=== PATIENT | male | born 1970 | race Caucasian/White ===

== ENCOUNTER 2021-09-21 09:10 | Day surgery (SDC) | payer BC ==
[~2021-09-21 09:10] MED LIST: Lactated Ringers 1,000 ML IV SCH; Lidocaine 1%/Sod Bicarbonate in NS 8.4% 1 ML Syringe IDERM PRN; Sodium Chloride 0.9% 10 ML Syringe FLUSH PRN
[2021-09-21] MEDS ORDERED: Propofol 200 MG/20 ML SDV ONE ×2 (09:58→10:20)
[2021-09-21] MEDS ORDERED: Lidocaine 1% 4 ML ONE (09:58)
[2021-09-21] MEDS ORDERED: fentaNYL 100 MCG/2 ML SDV ONE (09:58)
[2021-09-21] MEDS ORDERED: Midazolam 1 MG/ML 2 ML SDV ONE (09:58)
--- NOTE | 2021-09-21 10:17 | PCM.PREANE ---
Preanesthetic Assessment - Procedure Proposed Procedure: Colonoscopy - Anesthesia/Transfusion/Family Hx Anesthesia History: Prior Anesthesia Without Reaction Family History of Anesthesia Reaction: No Transfusion History: No Prior Transfusion(s) Intubation History: Unknown (Patient stated that when he has had surgery, he has never been told he was difficult to be intubated) - Review of Systems General: No Symptoms Pulmonary: No Symptoms Cardiovascular: No Symptoms Gastrointestinal: No Symptoms Neurological: No Symptoms Other: Reports: None - Physical Assessment NPO Status Date: 09/21/21 NPO Status Time: 08:00 (Patient stated he had 8 ounces of water from [id number], discussed extensively regarding risk of aspiration to ensure 0800 was the last time he had water, patient confirmed) Vital Signs: BP 120/79 HR 86 RR 16 97.9 96% RA Height: 1.7 m Weight: 84 kg ASA Class: 2 Mental Status: Alert & Oriented x3 Airway Class: Mallampati = 2 Dentition: Reports: [place](s), [place] Thyro-Mental Finger Breadths: 3 Mouth Opening Finger Breadths: 3 ROM/Head Extension: Full Lungs: Clear to Auscultation, Normal Respiratory Effort Cardiovascular: Regular Rate, Regular Rhythm, No Murmurs - Imaging/EKG Impressions: Discussed with Dr. Stockton if he would like an EKG done prior to procedure as it was checked in his pre-op checklist, Dr. Stockton stated that it was not indicated. Also discussed this with patient and as well. Patient can complete greater than 4 METs of activity without SOB or chest pain. Also notified Dr. Stockton of patient drinking 8 ounces of water this morning between [id number], Dr. Sotckton is aware and okay to proceed with procedure since it has been greater than 2 hours since he last drank water. Discussed with MAXWELL Stearns as well since it will be his case. MAXWELL Stearns was okay to proceed and he said since it has been greater than 2 hours (since clear liquids/water) no need or Reglan, Pepcid, or Bicitra. Discussed plan with patient and and stated they would like to proceed. - Allergies Allergies/Adverse Reactions: Allergies Allergy/AdvReac Type Severity Reaction Status Date / Time No Known Allergies Allergy Verified 09/20/21 16:06 - Blood Blood Available: No - Acknowledgements Anesthesia Type Planned: MAC Pt an Appropriate Candidate for the Planned Anesthesia: Yes Alternatives and Risks of Anesthesia Discussed w Pt/Guardian: Yes Pt/Guardian Understands and Agrees with Anesthesia Plan: Yes PreAnesthesia Questionnaire HEENT History: Reports: Allergic Rhinitis, Impaired Vision Cardiovascular History: Reports: Hypertension Respiratory History: Reports: Other (See Below) Other Respiratory History: Former smoker and chewer Gastrointestinal History: Reports: GERD (Occasionally dependent on food consumed, patient denies heart burn in the last week, patient stated it is well controlled.) Genitourinary History: Reports: None 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 Patient stated he has not had a migraine for 12 years and have been well controlled.) Psychiatric History: Reports: None Endocrine/Metabolic History: Reports: None Hematologic History: Reports: None Immunologic History: Reports: None Oncologic (Cancer) History: Reports: None Dermatologic History: Reports: None - Infectious Disease History Infectious Disease History: Reports: None - Past Surgical History Head Surgeries/Procedures: Reports: None HEENT Surgical History: Reports: None Cardiovascular Surgical History: Reports: None Respiratory Surgical History: Reports: None GI Surgical History: Reports: None Female Surgical History: Reports: None Male Surgical History: Reports: None Neurological Surgical History: Reports: Lumbar Spine Musculoskeletal Surgical History: Reports: None Oncologic Surgical History: Reports: None Dermatological Surgical History: Reports: None - SUBSTANCE USE Tobacco Use Status *Q: Former Tobacco User Recreational Drug Use History: No - HOME MEDS Home Medications: Home Meds lisinopriL [Lisinopril] 10 mg PO DAILY 09/20/21 [History] - CURRENT (IN HOUSE) MEDS Current Meds: Current Medications Lactated Ringer's (Ringers, Lactated) 1,000 mls @ 125 mls/hr IV ASDIRECTED JAME Stop: 09/21/21 23:00 Lidocaine/Sodium Bicarbonate (Lidocaine 1%/Sod Bicarbonate In Ns 8.4% 1 Ml Syringe) 0.25 ml IDERM ONETIME PRN PRN Reason: Prior to IV Start Stop: 09/21/21 18:00 Sodium Chloride (Sodium Chloride 0.9% 10 Ml Syringe) 10 ml FLUSH ASDIRECTED PRN PRN Reason: Keep Vein Open Stop: 09/21/21 18:00 Discontinued Medications Fentanyl (Fentanyl 100 Mcg/2 Ml Sdv) Confirm Administered Dose 100 mcg .ROUTE .STK-MED ONE Stop: 09/21/21 09:59 Lidocaine HCl (Xylocaine-Mpf 1%) Confirm Administered Dose 4 mls @ as directed .ROUTE .STK-MED ONE Stop: 09/21/21 09:59 Midazolam HCl (Midazolam 1 Mg/Ml 2 Ml Sdv) Confirm Administered Dose 2 mg .ROUTE .STK-MED ONE Stop: 09/21/21 09:59 Propofol (Propofol 200 Mg/20 Ml Sdv) Confirm Administered Dose 200 mg .ROUTE .STK-MED ONE Stop: 09/21/21 09:59
--- NOTE | 2021-09-21 11:34 | PCM48HPAN ---
Post Anesthesia Note - EVALUATION WITHIN 48HRS OF ANESTHETIC Vital Signs in Normal Range: Yes Patient Participated in Evaluation: Yes Respiratory Function Stable: Yes Airway Patent: Yes Cardiovascular Function Stable: Yes Hydration Status Stable: Yes Pain Control Satisfactory: Yes Nausea and Vomiting Control Satisfactory: Yes Mental Status Recovered: Yes
--- NOTE | 2021-09-21 11:49 | PCM.PRNOTE ---
- Free Text/Narrative Note: Date: 09/21/2021 Procedure: screening colonoscopy, initial Endoscopist: Adriano Stockton MD Findings: fair prep. Cecum reached. Sessile polyp in ascending colon, pedunculated polyp in proximal rectum. Diverticulosis. Detailed Report: The patient was taken to the endoscopy suite and placed in left lateral decubitus position. Timeout was performed and monitored anesthesia care was initiated. The anus appeared normal and digital rectal exam was unremarkable. The colonoscope was inserted and advanced to the cecum with ease. The appendiceal orifice and ileocecal junction were visualized. Prep was fair. The scope was slowly withdrawn and mucosal surfaces carefully inspected. Within the mid ascending colon a 1 cm sessile polyp was identified. This was removed piecemeal with jumbo forceps and remaining tissue was fulgurated. The only other polyp that was identified was an inflammatory appearing pedunculated polyp in the proximal rectum. This was removed in its entirety using hot snare polypectomy technique and the specimen was successfully retrieved. There was moderate diverticular disease of the sigmoid colon. On retroflexion in the rectum, no pathology was noted. Air was suctioned from the distal colon and rectum prior to withdrawal of the scope. The patient tolerated the procedure well.
== END 2021-09-21 12:34 | disposition home or self-care (01) ==
LOC: JD.SDS 09:10
PROVIDERS: ATTEND Surgery
DX: Z12.11 Encounter for screening for malignant neoplasm of colon (principal); D12.2 Benign neoplasm of ascending colon; K62.1 Rectal polyp; K57.30 Diverticulosis of large intestine without perforation or abscess without bleeding; I10 Essential (primary) hypertension; J30.9 Allergic rhinitis, unspecified; K21.9 Gastro-esophageal reflux disease without esophagitis; Z98.890 Other specified postprocedural states; Z87.891 Personal history of nicotine dependence
CPT/HCPCS: 45380; 45385; J2250; J2370; J2704; J3010; J7120; 00812

== ENCOUNTER 2025-04-06 15:51 | Inpatient (IN) | payer BC ==
[2025-04-06] MEDS ORDERED: Sodium Chloride 0.9% 10 ML Syringe FLUSH PRN (16:01)
[2025-04-06 16:19] LABS: BASOPHILS ABSOLUTE AUTO 0.1 K/mm3 (0.0-0.2); BASOPHILS PERCENT AUTO 0.8 % (0.0-1.0); EOSINOPHILS PERCENT AUTO 0.1 % (0.0-6.0); HEMATOCRIT 50.8 % (42.0-52.0); HEMOGLOBIN 17.4 gm/dl (14.0-18.0); IMMATURE GRAN ABSOLUTE AUTO 0.17 K/mm3 (0.00-0.05); IMMATURE GRAN PERCENT AUTO 1.1 % (0.0-0.4); LYMPHOCYTES ABSOLUTE AUTO 2.5 K/mm3 (1.0-4.8); LYMPHOCYTES PERCENT AUTO 16.1 % (24.0-44.0); MEAN CORPUSCULAR HEMOGLOBIN 31.5 pg (28.0-32.0); MEAN CORPUSCULAR HGB CONC 34.3 g/dl (32.0-36.0); MEAN PLATELET VOLUME 8.8 fl (9.4-12.4); MONOCYTES PERCENT AUTO 6.5 % (0.0-8.0); NEUTROPHILS ABSOLUTE AUTO 11.9 K/mm3 (1.8-7.7); NEUTROPHILS PERCENT AUTO 75.4 % (41.0-71.0); PLATELET COUNT,PLT 199 K/mm3 (150-400); RED BLOOD CELL COUNT 5.52 M/mm3 (4.52-5.90); WHITE BLOOD CELL COUNT,WBC 15.72 K/mm3 (3.9-11.3)
[2025-04-06] MEDS: Sodium Chloride 0.9% 1,000 ML IV STA ×2 (16:23→18:29)
[2025-04-06] MEDS: HYDROmorphone 0.5 MG/0.5 ML Syringe IVPUSH ONE (16:23)
[2025-04-06] MEDS: Ondansetron 4 MG/2 ML SDV IVPUSH ONE (16:23)
[2025-04-06] MEDS: Sodium Chloride 0.9% 10 ML Syringe FLUSH ONE (16:28)
[2025-04-06] MEDS: Iopamidol 612 MG/ML 100 ML Bottle IVPUSH ONE (16:28)
[2025-04-06 16:42] LABS: A/G RATIO 1.2 (1-2); ALBUMIN 4.1 g/dl (3.4-5.0); BILIRUBIN TOTAL 1.3 mg/dL (0.2-1.0); BUN/CREATININE RATIO 8.6 (14-18); C-REACTIVE PROTEIN 3.99 mg/dL (<0.30); CALCIUM 9.6 mg/dL (8.5-10.1); CREATININE 1.4 mg/dL (0.7-1.3); PROTEIN TOTAL,TP 7.4 g/dl (6.4-8.2)
[2025-04-06 17:13] LABS: ANION GAP 26.1 (5-15); POTASSIUM,K 4.1 mEq/L (3.5-5.1)
[2025-04-06 18:00] LABS: APPEARANCE,URINE CLEAR (Clear); BILIRUBIN,URINE 1+ (Negative); COLOR,URINE YELLOW (Yellow); GLUCOSE,URINE NEGATIVE (Negative); KETONES,URINE 4+ (Negative); LEUKOCYTE ESTERASE,URINE NEGATIVE (Negative); NITRITE,URINE NEGATIVE (Negative); OCCULT BLOOD,URINE NEGATIVE (Negative); PH,URINE 5.5 (5.0-8.0); PROTEIN,URINE 1+ (Negative); UROBILINOGEN,URINE 0.2 (0.2-1.0)
[2025-04-06 18:14] LABS: LACTIC ACID 1.2 mmol/L (0.4-2.0)
[2025-04-06 18:23] LABS: EPITHELIAL CELLS,URINE 0-5 /hpf (0-5); RBC,URINE 0-5 /hpf (0-5); WBC,URINE 0-5 /hpf (0-5)
[2025-04-06 18:26] LABS: BACTERIA,URINE FEW /hpf (FEW); HYALINE CASTS,URINE 0-5 /lpf (0-5); MUCUS,URINE NOT SEEN /hpf (FEW)
[2025-04-06] MEDS ORDERED: Acetaminophen 325 MG Tab PO PRN (18:33)
[2025-04-06] MEDS ORDERED: Naloxone 0.4 MG/ML SDV IVPUSH PRN (18:34)
[2025-04-06] MEDS: HYDROmorphone 0.5 MG/0.5 ML Syringe IVPUSH PRN (19:20)
[2025-04-06] MEDS: cefTRIAXone 2 GM Vial IVPUSH SCH (20:07)
[2025-04-06] MEDS: metroNIDAZOLE/Normal Saline 500 MG in Premix Bag 1 BAG IV SCH (20:10)
[2025-04-06] MEDS: traMADol 50 MG Tab PO PRN (21:46)
[2025-04-07 05:47] LABS: BASOPHILS ABSOLUTE AUTO 0.1 K/mm3 (0.0-0.2); BASOPHILS PERCENT AUTO 0.9 % (0.0-1.0); EOSINOPHILS ABSOLUTE AUTO 0.2 K/mm3 (0.0-0.4); EOSINOPHILS PERCENT AUTO 2.1 % (0.0-6.0); HEMATOCRIT 41.6 % (42.0-52.0); HEMOGLOBIN 13.9 gm/dl (14.0-18.0); IMMATURE GRAN ABSOLUTE AUTO 0.12 K/mm3 (0.00-0.05); IMMATURE GRAN PERCENT AUTO 1.3 % (0.0-0.4); LYMPHOCYTES ABSOLUTE AUTO 2.3 K/mm3 (1.0-4.8); MEAN CORPUSCULAR HEMOGLOBIN 31.8 pg (28.0-32.0); MEAN CORPUSCULAR HGB CONC 33.4 g/dl (32.0-36.0); MEAN CORPUSCULAR VOLUME 95.2 fl (83.0-99.0); MONOCYTES ABSOLUTE AUTO 0.8 K/mm3 (0.0-0.8); MONOCYTES PERCENT AUTO 8.4 % (0.0-8.0); NEUTROPHILS ABSOLUTE AUTO 5.6 K/mm3 (1.8-7.7); NEUTROPHILS PERCENT AUTO 62.3 % (41.0-71.0); PLATELET COUNT,PLT 154 K/mm3 (150-400); RED BLOOD CELL COUNT 4.37 M/mm3 (4.52-5.90)
[2025-04-07 06:11] LABS: ALANINE AMINOTRANSFERASE,ALT 90 U/L (16-63); ALKALINE PHOSPHATASE 60 U/L (46-116); ANION GAP 16.8 (5-15); ASPARTATE AMNIOTRANSFERASE,AST 57 U/L (15-37); BILIRUBIN TOTAL 0.6 mg/dL (0.2-1.0); BLOOD UREA NITROGEN,BUN 8 mg/dL (7-18); BUN/CREATININE RATIO 6.7 (14-18); C-REACTIVE PROTEIN 2.37 mg/dL (<0.30); CALCIUM 8.6 mg/dL (8.5-10.1); CARBON DIOXIDE,CO2 23 mEq/L (21-32); CHLORIDE,CL 101 mEq/L (98-107); CREATININE 1.2 mg/dL (0.7-1.3); ESTIMATED GFR 71 mL/min (>60); GLUCOSE RANDOM 92 mg/dL (70-99); POTASSIUM,K 3.8 mEq/L (3.5-5.1); PROTEIN TOTAL,TP 5.9 g/dl (6.4-8.2); SODIUM,NA 137 mEq/L (136-145)
[2025-04-07] MEDS: Enoxaparin 40 MG/0.4 ML Syringe SUBCUT SCH (08:51)
== END 2025-04-07 10:28 | disposition home or self-care (01) | DRG 244 ==
LOC: JD.ED 15:51 → JD.MS 18:14
PROVIDERS: ADMIT Family Medicine; ATTEND Family Medicine
DX: K57.32 Diverticulitis of large intestine without perforation or abscess without bleeding (principal); K52.9 Noninfective gastroenteritis and colitis, unspecified; N17.9 Acute kidney failure, unspecified; H54.7 Unspecified visual loss; I10 Essential (primary) hypertension; K21.9 Gastro-esophageal reflux disease without esophagitis; G43.909 Migraine, unspecified, not intractable, without status migrainosus; E87.20 Acidosis, unspecified; E86.0 Dehydration; E78.00 Pure hypercholesterolemia, unspecified; K76.0 Fatty (change of) liver, not elsewhere classified; Z79.899 Other long term (current) drug therapy; Z98.890 Other specified postprocedural states; Z87.891 Personal history of nicotine dependence
CPT/HCPCS: 36415; 74177; 74177-26; 80053; 81001; 83605; 85025; 86140; 87040; 96361; 96374; 96375; 99222; 99238; 99284; 99285-25; A9270-GY; J0696; J1836; J2405; J7030; Q9967